=== PATIENT | female | born 1980 | race African-American/Black ===

== ENCOUNTER 2017-03-11 12:32 | Emergency (ER) | payer OTHER ==
[~2017-03-11] VITALS: Ht 144.8 cm; Wt 73.5 kg
--- NOTE | ~2017-03-11 | EKG ---
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
[~2017-03-11 12:32] MED LIST: BACTRIM DS TAB1 EACH; HYDROCODONE-AP1 EAC6 PO; IBUPROFEN 600600 M1 PO; NAPROSYN500 MG PO; NOHOMEMEDICATIONS; NORCO 5-325 TA1 EACH PO; PENICILLIN V P500 MG PO; TRAZODONE 150150 M1 PO; VISTARIL 25 MG25 M1 PO; ZOFRAN ODT4 MG PO
[2017-03-11] MEDS ORDERED: NAPROSYN500 MG PO (14:17)
[2017-03-11] MEDS ORDERED: LIDODERM 5%1 PATC1 TRANSDERM (14:17)
[2017-03-11 15:04] VITALS: BP 110/68
== END 2017-03-11 14:45 | disposition home or self-care (01) ==
LOC: ER 12:32
DX: R07.89 Other chest pain (principal); F17.210 Nicotine dependence, cigarettes, uncomplicated; J45.909 Unspecified asthma, uncomplicated; F10.99 Alcohol use, unspecified with unspecified alcohol-induced disorder

== ENCOUNTER 2017-03-22 16:50 | Emergency (ER) | payer OTHER ==
[~2017-03-22] VITALS: Ht 154.9 cm; Wt 74.4 kg
[~2017-03-22 16:50] MED LIST changes: +LIDODERM 5%1 PATC1 TRANSDERM
[2017-03-22] MEDS ORDERED: NAPROSYN500 MG PO (17:52)
[2017-03-22] MEDS ORDERED: MEDROLDOSEPACK PO (17:52)
[2017-03-22 18:08] VITALS: BP 120/80
== END 2017-03-22 18:08 | disposition home or self-care (01) ==
LOC: ER 16:50
DX: M94.0 Chondrocostal junction syndrome [Tietze] (principal); J45.909 Unspecified asthma, uncomplicated; F17.210 Nicotine dependence, cigarettes, uncomplicated; F10.99 Alcohol use, unspecified with unspecified alcohol-induced disorder

== ENCOUNTER 2019-06-05 12:46 | Emergency (ER) | payer OTHER ==
[~2019-06-05] VITALS: Ht 139.7 cm; Wt 63.5 kg
[~2019-06-05 12:46] MED LIST changes: +MEDROLDOSEPACK PO
[2019-06-05 13:24] LABS: ABSOLUTE NEUTROPHILS 6.2 thou/uL (1.4-8.2); BASOPHILS 0.9 % (0.0-2.0); EOSINOPHILS 3.3 % (0.0-3.0); HEMATOCRIT 35.3 % (37.0-47.0); HEMOGLOBIN 11.6 gm/dL (12.0-15.0); LYMPHOCYTES 20.6 % (24.0-44.0); MCH 28.5 pg (26.0-34.0); MCV 86.6 fL (80.0-100.0); MONOCYTES 7.9 % (1.0-8.0); PLATELET COUNT 354 thou/uL (150-400); POLYS 67.3 % (36.0-66.0); RBC 4.08 mil/uL (4.20-5.00); WBC 9.3 thou/uL (4.0-11.0)
[2019-06-05 13:32] LABS: URINE BILIRUBIN NEGATIVE (Negative); URINE BLOOD TRACE (Negative); URINE CLARITY CLEAR; URINE COLOR YELLOW; URINE GLUCOSE-RANDOM* NEGATIVE (Negative); URINE KETONES NEGATIVE (Negative); URINE LEUKOCYTES-REFLEX NEGATIVE (Negative); URINE NITRITE-REFLEX NEGATIVE (Negative); URINE PROTEIN (DIPSTICK) NEGATIVE (Negative); URINE SPECIFIC GRAVITY 1.025 (1.005-1.035); URINE UROBILINOGEN 0.2 E.U./dl (0.2-1.0)
[2019-06-05 13:34] LABS: CALCIUM 9.8 mg/dL (8.5-10.1); CREATININE 0.8 mg/dL (0.6-1.0)
[2019-06-05 13:39] LABS: ALBUMIN 3.2 g/dL (3.4-5.0); TOTAL BILIRUBIN 0.1 mg/dL (<0.1-1.0); TOTAL PROTEIN 7.5 g/dL (6.4-8.2)
[2019-06-05] MEDS ORDERED: PROBIOTIC1 EAC4 PO (15:11)
[2019-06-05] MEDS ORDERED: ZOFRAN ODT4 MG PO (15:11)
[2019-06-05] MEDS ORDERED: COLACE100 MG PO (15:11)
[2019-06-05] MEDS ORDERED: BENTYL 10 MG CA10 M1 PO (15:11)
[2019-06-05 15:52] VITALS: BP 102/58
== END 2019-06-05 15:54 | disposition home or self-care (01) ==
LOC: ER 12:46
PROVIDERS: Nurse Practitioner Family
DX: K52.9 Noninfective gastroenteritis and colitis, unspecified (principal); K59.00 Constipation, unspecified; J45.909 Unspecified asthma, uncomplicated; F17.210 Nicotine dependence, cigarettes, uncomplicated; Z91.041 Radiographic dye allergy status; Z88.8 Allergy status to other drugs, medicaments and biological substances

== ENCOUNTER 2019-07-15 07:51 | Emergency (ER) | payer OTHER ==
[~2019-07-15] VITALS: Ht 162.6 cm; Wt 61.2 kg
[~2019-07-15 07:51] MED LIST changes: +BENTYL 10 MG CA10 M1 PO; +COLACE100 MG PO; +PROBIOTIC1 EAC4 PO
[2019-07-15] MEDS ORDERED: TRAMADOL 50 MG50 MG PO (09:15)
[2019-07-15] MEDS ORDERED: NAPROSYN500 MG PO (09:15)
[2019-07-15] MEDS ORDERED: PENICILLIN VK500 M1 PO (09:15)
[2019-07-15 09:25] VITALS: BP 107/46
== END 2019-07-15 09:25 | disposition home or self-care (01) ==
LOC: ER 07:51
DX: K04.7 Periapical abscess without sinus (principal); I10 Essential (primary) hypertension; J45.909 Unspecified asthma, uncomplicated; F17.210 Nicotine dependence, cigarettes, uncomplicated; Z88.8 Allergy status to other drugs, medicaments and biological substances; Z91.041 Radiographic dye allergy status

== ENCOUNTER 2019-12-29 14:30 | Emergency (ER) | payer OTHER ==
[~2019-12-29] VITALS: Ht 144.8 cm; Wt 63.5 kg
[~2019-12-29 14:30] MED LIST changes: +PENICILLIN VK500 M1 PO; +TRAMADOL 50 MG50 MG PO
[2019-12-29 14:34] VITALS: BP 137/81
[2019-12-29] MEDS ORDERED: IBUPROFEN 600600 M1 PO (15:05)
[2019-12-29] MEDS ORDERED: CLEOCIN HCL150 MG PO (15:05)
[2019-12-29] MEDS ORDERED: ZOFRAN ODT4 MG PO (15:05)
[2019-12-29] MEDS ORDERED: NORCO 5-325 TA1 EAC1 PO (15:05)
== END 2019-12-29 15:33 | disposition home or self-care (01) ==
LOC: ER 14:30
DX: K04.7 Periapical abscess without sinus (principal); K02.9 Dental caries, unspecified; K00.6 Disturbances in tooth eruption; R59.0 Localized enlarged lymph nodes; J45.909 Unspecified asthma, uncomplicated; F17.210 Nicotine dependence, cigarettes, uncomplicated; Z91.041 Radiographic dye allergy status; Z88.8 Allergy status to other drugs, medicaments and biological substances